=== PATIENT | female | born 1990 | race African-American/Black ===

== ENCOUNTER 2019-04-05 12:09 | Emergency (ER) | payer MEDICAID ==
[~2019-04-05] VITALS: Ht 154.9 cm; Wt 81.0 kg
[2019-04-05 13:08] LABS: BASOPHILS % 0.5 % (0.0-2.0); EOSINOPHILS % 2.9 % (0.0-5.0); HEMATOCRIT. 36.5 % (36.0-48.0); HEMOGLOBIN. 12.1 g/dL (12.0-16.0); LYMPHOCYTES % 22.2 % (20.0-50.0); MEAN CORPUSCULAR HEMOGLOBIN 28.7 pg (28.0-32.0); MEAN CORPUSCULAR VOLUME 86.3 fL (81.0-99.0); MEAN PLATELET VOLUME 7.7 fl (7.4-10.4); MONOCYTES % 7.6 % (2.0-8.0); NEUTROPHILS % 66.8 % (40.0-76.0); PLATELET 314 x1000/uL (130-400); RED BLOOD CELL COUNT 4.22 mill/uL (4.2-5.4); RED CELL DISTRIBUTION WIDTH 14.6 % (11.6-14.6)
[2019-04-05 13:10] LABS: CLARITY URINE CLEAR (CLEAR); COLOR URINE YELLOW (YELLOW); KETONES URINE NEGATIVE (NEGATIVE); LEUKOCYTE ESTERASE URINE NEGATIVE (NEGATIVE); NITRITE URINE NEGATIVE (NEGATIVE); OCCULT BLOOD URINE 3+ (NEGATIVE); PROTEIN URINE NEGATIVE (NEGATIVE); SPECIFIC GRAVITY URINE 1.023 (1.005-1.030); UROBILINOGEN URINE 0.2 E.U./dL (0.2-1.0)
[2019-04-05 13:11] LABS: CHLORIDE 107 mEq/L (98-107)
[2019-04-05 13:34] LABS: B-HCG QUANTITATIVE 74796 mIU/mL (<3)
[2019-04-05] MEDS ORDERED: ACETAMINOPHEN 325MG TABLET PO ONE (15:30)
[2019-04-05] MEDS ORDERED: PROCHLORPERAZINE 10MG/2ML VIAL IM ONE (17:30)
[2019-04-05 18:41] VITALS: BP 108/64
== END 2019-04-05 18:42 | disposition home or self-care (01) ==
LOC: ER 12:09
DX: O46.91 Antepartum hemorrhage, unspecified, first trimester (principal); Z3A.11 11 weeks gestation of pregnancy
CPT/HCPCS: 36415; 76801; 76817; 80048; 81003; 81025; 84702; 85025; 86850; 86900; 86901; 96372; 99284; J0780